=== PATIENT | male | born 1955 | race Two or more races ===

== ENCOUNTER 2017-03-18 12:36 | Emergency (ER) | payer MEDICAID ==
[~2017-03-18] VITALS: Ht 177.8 cm; Wt 86.2 kg
--- NOTE | 2017-03-18 13:15 | NUR ---
SEEN BY MD CUEVAS. PATIENT WAS SENT FROM D FOR HIGH BP
[2017-03-18] MEDS ORDERED: HYDROCHLOROTHIAZIDE 25 MG TABLET ONE (13:18)
--- NOTE | 2017-03-18 13:23 | NUR ---
MEIDCATED PT ORDERED
--- NOTE | 2017-03-18 13:24 | NUR ---
Patient discharged to home in stable condition. Written and verbal after care instructions given. Patient verbalizes understanding of instruction.
--- NOTE | 2017-03-18 13:24 | NUR ---
MD CUEVAS EXPLAINED DC PLAN TO PT AND FAMILY
[2017-03-18 13:25] VITALS: BP 238/125
[2017-03-18] MEDS ORDERED: HYDROCHLOROTHIAZIDE 25 MG TABLET PO ONE (13:30)
== END 2017-03-18 13:25 | disposition home or self-care (01) ==
LOC: ER 12:47
DX: I10 Essential (primary) hypertension (principal)
CPT/HCPCS: 99283; A4606; Z7610